=== PATIENT | female | born 1935 | race Caucasian/White ===

== ENCOUNTER 2018-01-09 18:21 | Inpatient (IN) ==
[2018-01-09] MEDS: *HR* OxyCODONE/APAP 5/325 TABLET PO PRN (23:28)
[2018-01-10 05:09] LABS: Basophils % 0.7 %; Eosinophils # 0.1 K/mcL (0.0-0.6); Eosinophils % 1.8 %; Hematocrit 28.6 % (35.3-44.9); Hemoglobin 9.5 g/dL (11.5-15.4); Immature Granulocytes % 0.3 % (0-4); Lymphocytes # 1.4 K/mcL (0.6-4.6); Lymphocytes % 23.5 %; Mean Corpuscular HGB Conc 33.2 g/dL (31.6-35.5); Mean Corpuscular Hemoglobin 31.3 pg (28.0-33.3); Mean Corpuscular Volume 94.1 fL (83.0-100.0); Mean Platelet Volume 10.9 fL (9.4-12.4); Monocytes # 0.6 K/mcL (0.0-1.3); Monocytes % 10.6 %; Neutrophils # 3.8 K/mcL (1.6-8.9); Platelet Count 172 K/mcL (140-400); Red Blood Count 3.04 M/mcL (3.82-4.97); Red Cell Distribution Width 14.5 % (11.5-14.5); Segmented Neutrophils % 63.1 %
[2018-01-10 05:26] LABS: Alanine Aminotransferase 29 Units/L (7-52); Albumin 3.1 g/dL (3.5-5.7); Albumin/Globulin Ratio 1.1 (1.1-2.2); Alkaline Phosphatase 59 Units/L (34-104); Aspartate Amino Transferase 38 Units/L (13-39); BUN/Creatinine Ratio 14 (6-26); Bilirubin,Total 0.6 mg/dL (0.3-1.0); Blood Urea Nitrogen 9 mg/dL (8-23); Calcium 8.6 mg/dL (8.6-10.3); Carbon Dioxide 31 mEq/L (23-29); Chloride 103 mEq/L (98-107); Globulin 2.7 g/dL (2.4-3.5); Glucose 105 mg/dL (70-105); Osmolality,Calculated 285 (280-300); Potassium 4.1 mEq/L (3.5-5.1); Sodium 138 mEq/L (136-145); Total Protein 5.8 g/dL (6.4-8.9); eGFR For African Americans > 60 (> 60); eGFR For Non-African Americans > 60 (> 60)
[2018-01-10] MEDS: *HR* OxyCODONE/APAP 5/325 TABLET PO PRN ×3 (05:36→20:18)
[2018-01-10] MEDS ORDERED: Acetaminophen 325 MG TABLET PO SCH (09:00)
[2018-01-10] MEDS: Multivit/Ca/Min/Fe/FA 1 TAB TABLET PO SCH (09:37)
[2018-01-10] MEDS: Gabapentin 300 MG CAPSULE PO SCH ×3 (09:37→20:19)
[2018-01-10] MEDS: *HR* Rivaroxaban 10 MG TABLET PO SCH (09:38)
--- NOTE | 2018-01-10 10:45 | Internal Med History&Physical ---
Date of Encounter: 01/10/18 Time of Encounter: 10:39 Assessment and Plan (1) Physical deconditioning Current visit: Yes Status: Acute This is attributed to patient's status post right knee arthroplasty. PT OT to evaluate patient and set goals We will attempt to control pain, to optimize therapy Currently; -Percocet 1.5 tabs of 5/325 every 6 hours as needed; we will attempt to lower by Friday -Schedule Tylenol 325 mg 3 times daily -Ice -Discontinued Celebrex 200 mg daily (2) Status post right knee replacement Current visit: Yes Status: Acute PT OT as above Patient to continue on Xeralto (3) Atrial fibrillation Current visit: Yes Status: Acute Sudheer Vasc score; 3 and adjusted stroke rate of 3.2%. -Continues overall to 20 mg, will investigate for possible GI bleed -As follow-up with Dr. Edwards, cardiology -We might need to touch base with Dr. Edwards the patient was found to have positive FOBT -Patient is rate controlled, and not on any rate control medication Qualifiers: Atrial fibrillation type: unspecified Qualified Code(s): I48.91 - Unspecified atrial fibrillation (4) GERD (gastroesophageal reflux disease) Current visit: Yes Status: Acute Patient has chronic condition, will continue with Maalox, -started omeprazole 20 mg daily -Avoid NSAIDs, discontinued Celebrex Qualifiers: Esophagitis presence: esophagitis presence not specified Qualified Code(s) : K21.9 - Gastro-esophageal reflux disease without esophagitis (5) Neuropathy Current visit: Yes Status: Acute Stable, continue gabapentin (6) Arthritis Current visit: Yes Status: Acute Stable continue meds as above (7) Carpal tunnel syndrome Current visit: Yes Status: Acute Stable, continue gabapentin Qualifiers: Laterality: bilateral Qualified Code(s): G56.03 - Carpal tunnel syndrome, bilateral upper limbs (8) Dark stools Current visit: Yes Status: Acute As reported by the patient, patient on Xarelto -Obtain FOBT -Started omeprazole 20 mg -Would avoid NSAIDs Internal Medicine - H&P: HPI Chief complaint: Right knee arthritis status post right total knee arthroplasty Admitted From: Hospital to Hospital Transfer History of present illness: 82-year-old female past medical history atrial fib, severe arthritis, status post right TKA 01/06/2018 who was transferred from [facility] for rehabilitation. I have met the patient, as well as the daughter near bedside on 01/10/2018 that reported that her current pain is 6/10 in severity, described as sharp and localized. Patient has baseline neuropathy bilateral lower extremity that she takes gabapentin which appears to have been very effective for her. Patient reported that she had physical therapist evaluate her, and she was able to bend her knee at least 90 degrees as well as ambulate with assistance, as well as perform 4 steps with assistance. Currently reports that her pain was controlled with 2 tabs of Percocet, and that her pain is exacerbated somewhat when she received 1 Percocets at the time of her transfer. She also reports Wilda, continuously with a sternal discomforts as well as burping. She also reported that her stomach is quivering , but that had improved which she attributes to anesthesia as she have experienced this before. She does not endorse any weakness, no headaches, no vision changes, no nasal or throat issues, no dysphagia, no chest pains, no shortness of breath, had a bowel movement this morning that was somewhat soft, able to urinate okay, able to move her feet okay as well. Patient does report that her bowel movement resulted in dark stools, has not endorsed any waqas blood. Does not report being on iron, but has been on Zaroxolyn. She has been switched as Xarelto due to cost. Past Med Surg Social Fam HX - Past Medical History Medical history: atrial fibrillation Additional medical history: New onset Psychiatric history: no psych history - Past Surgical History Additional surgical history: Bladder repair and Umbilical hernia repair. - Social History Smoking Status: Never smoker Smokeless Tobacco Status: No Alcohol use: none Drug use: none Internal Medicine - H&P: Meds Acetaminophen [Tylenol] 650 mg PO TID 01/09/18 [History] Docusate [Colace] 100 mg PO BID 01/09/18 [History] Gabapentin [Neurontin] 600 mg PO TID 01/09/18 [History] Multivit-Min/Iron Fum/Folic AC [Kjdnr-Knpklqt-Dvvoxpbk Tablet] 1 each PO DAILY 01/09/18 [History] OxyCODONE/APAP 5/325 [Percocet 5/325 MG] 1 each PO Q6HR PRN 01/09/18 [History] Polyethylene Glycol 3350 [MiraLAX] 17 gm PO BID 01/09/18 [History] Rivaroxaban [Xarelto] 20 mg PO DAILY 01/09/18 [History] 3 Allergy/AdvReac Type Severity Reaction Status Date / Time codiene Allergy Rash Uncoded 01/09/18 21:09 All Systems PM: A 10-system review of systems was performed and is negative for pertinent findings except as documented above in the HPI. - Constitutional Vitals: Temp Pulse Resp BP Pulse Ox 98.2 F 81 21 140/101 96 01/10/18 07:43 01/10/18 07:43 01/10/18 07:43 01/10/18 07:43 01/10/18 07:43 - Head Head exam: Present: atraumatic, normocephalic - Eye Eye exam: Present: PERRL, conjuntiva pink, sclera anicteric Pupils: Present: PERRL - Neck Neck exam general surgery: Present: supple, trachea midline. Absent: lymphadenopathy - Respiratory Respiratory exam: Present: CTAB. Absent: accessory muscle use, rales, rhonchi, wheezes - Cardiovascular Cardiovascular exam: Present: RRR, +S1, +S2. Absent: diastolic murmur, gallop, rubs, systolic murmur - GI/Abdominal GI/Abdominal exam: Present: normal bowel sounds, soft, no peritoneal signs. Absent: distended, tenderness - Extremities Exam Extremities exam: Present: warm, radial pulses palpable and symmetrical. Absent : calf tenderness, cyanotic, pedal edema Additional comments: Left knee covered, but patient had 5/500 foot and the toes bilaterally. Left leg testing is 5/5 as well. Upper extremity 5/5 CN grossly intact - Neurological Exam Neurological exam: Present: CN II-XII intact, oriented X3, no focal deficits. Absent: pronater drift, facial droop, speech deficit - Skin Skin exam: Present: dry, intact Internal Med - H&P Results - Labs CBC & Chem 7: 01/10/18 04:27 01/10/18 04:27 Labs: Short CBC 01/10/18 Range/Units 04:27 WBC 6.0 (4.3-11.1) K/mcL Hgb 9.5 L (11.5-15.4) g/dL Hct 28.6 L (35.3-44.9) % Plt Count 172 (140-400) K/mcL Neutrophils # 3.8 (1.6-8.9) K/mcL BMP 01/10/18 04:27 Sodium 138 Potassium 4.1 Chloride 103 Carbon Dioxide 31 H BUN 9 Creatinine 0.66 Glucose 105 Calcium 8.6 Liver Function 01/10/18 Range/Units 04:27 Total Bilirubin 0.6 (0.3-1.0) mg/dL AST 38 (13-39) Units/L ALT 29 (7-52) Units/L Alkaline Phosphatase 59 (34-104) Units/L Albumin 3.1 L (3.5-5.7) g/dL - VTE Reasons for not Prescribing Prophylaxis: Not indicated-Anticoagulated or INR therapeutic (Patient was Xarelto) Documentation of Mechanical Device: Graduated compression elastic hosiery
[2018-01-10] MEDS: Acetaminophen 325 MG TABLET PO SCH (18:02)
[2018-01-11] MEDS: Acetaminophen 325 MG TABLET PO SCH ×4 (03:08→16:55)
[2018-01-11] MEDS: *HR* OxyCODONE/APAP 5/325 TABLET PO PRN ×3 (06:04→20:15)
[2018-01-11] MEDS: Gabapentin 300 MG CAPSULE PO SCH ×3 (08:38→20:15)
[2018-01-11] MEDS: Multivit/Ca/Min/Fe/FA 1 TAB TABLET PO SCH (08:38)
[2018-01-11] MEDS: *HR* Rivaroxaban 10 MG TABLET PO SCH (08:39)
--- NOTE | 2018-01-11 15:28 | Internal Med Progress Note ---
Date of Encounter: 01/11/18 Time of Encounter: 15:26 - Assessment and plan (1) Physical deconditioning Current Visit: Yes Status: Acute Assessment and plan: Pain control; Percocet 1.5 tabs of 5/325 every 6 hours as needed Schedule Tylenol 325 mg 3 times daily Continue ice (2) Status post right knee replacement Current Visit: Yes Status: Acute Assessment and plan: PT/OT Patient currently on Xeralto for DVT prophy (3) Atrial fibrillation Current Visit: Yes Status: Acute Assessment and plan: New onset, with Sudheer vasc score of 3; adjusted stroke rate of 3.2% -Continue Xeral a 20mg, lymphocytic A for possible upper GI bleed -Follow-up with Dr. Edwards; cardiology -FOBT positive; touch base with cardiology sooner -Patient continues to be rate controlled, not on rate control meds Qualifiers: Atrial fibrillation type: unspecified Qualified Code(s): I48.91 - Unspecified atrial fibrillation (4) GERD (gastroesophageal reflux disease) Current Visit: Yes Status: Acute Assessment and plan: Chronic, continue Maalox -We started omeprazole 20 mg -Continue to avoid NSAIDs, we have discontinued Celebrex on admission Qualifiers: Esophagitis presence: esophagitis presence not specified Qualified Code(s) : K21.9 - Gastro-esophageal reflux disease without esophagitis (5) Neuropathy Current Visit: Yes Status: Acute Assessment and plan: Stable continue gabapentin (6) Arthritis Current Visit: Yes Status: Acute Assessment and plan: Stable, continue pain meds as above (7) Carpal tunnel syndrome Current Visit: Yes Status: Acute Assessment and plan: Stable, continue gabapentin Qualifiers: Laterality: bilateral Qualified Code(s): G56.03 - Carpal tunnel syndrome, bilateral upper limbs (8) Dark stools Current Visit: Yes Status: Acute Assessment and plan: Possible upper GI bleed, patient on AC -Obtain FOBT -Currently on omeprazole 20 mg -Continue to avoid NSAIDs - Time Spent With Patient 25 - 35 minutes - Subjective Interval history: Patient is resting comfortably in bed. Patient appears to be anxious, and explained that she has pain with ambulation, especially when she ambulated to the bathroom for bowel movement. Has been having bowel movements okay. Denied any CP/SOB/F/N/V Still reports that her bowel movements appears black, as before. Unable to obtain FOBT because she is reporting her bowel movements has been unpredictable - Constitutional Vitals: Temp Pulse Resp BP Pulse Ox 98.3 F 96 16 120/64 96 01/11/18 07:00 01/11/18 07:00 01/11/18 07:00 01/11/18 07:00 01/11/18 07:00 - Head Head exam: Present: atraumatic, normocephalic - Eye Eye exam: Present: PERRL, conjuntiva pink, sclera anicteric Pupils: Present: PERRL - Neck Neck exam general surgery: Present: supple, trachea midline. Absent: lymphadenopathy - Respiratory Respiratory exam: Present: CTAB. Absent: accessory muscle use, rales, rhonchi, wheezes - Cardiovascular Cardiovascular exam: Present: RRR, +S1, +S2. Absent: diastolic murmur, gallop, rubs, systolic murmur - GI/Abdominal GI/Abdominal exam: Present: normal bowel sounds, soft, no peritoneal signs. Absent: distended, tenderness - Extremities Exam Extremities exam: Present: warm, radial pulses palpable and symmetrical. Absent : calf tenderness, cyanotic, pedal edema Additional comments: Left knee covered, the patient had 5/5 at the foot and toes bilaterally. Left leg testing continues to be 5/5. - Neurological Exam Neurological exam: Present: CN II-XII intact, oriented X3, no focal deficits. Absent: pronater drift, facial droop, speech deficit - Skin Skin exam: Present: dry, intact Internal Medicine: Result - Labs CBC & Chem 7: 01/10/18 04:27 01/10/18 04:27 - VTE Reasons for not Prescribing Prophylaxis: Not indicated-Anticoagulated or INR therapeutic (Patient was Xarelto) Documentation of Mechanical Device: Graduated compression elastic hosiery Consult Discharge Plan - Plan Referrals: Mick Beauchamp MD [Primary Care Provider] -
[2018-01-12] MEDS: Acetaminophen 325 MG TABLET PO SCH ×9 (00:04→23:52)
[2018-01-12] MEDS: *HR* OxyCODONE/APAP 5/325 TABLET PO PRN ×2 (05:28→10:50)
[2018-01-12] MEDS: Gabapentin 300 MG CAPSULE PO SCH ×3 (09:40→20:15)
--- NOTE | 2018-01-12 09:40 | Internal Med Progress Note ---
Date of Encounter: 01/12/18 Time of Encounter: 09:38 - Assessment and plan (1) Status post right knee replacement Current Visit: Yes Status: Acute Assessment and plan: Continue Percocet for pain. Continue xarelto for DVT prophylaxis. Continue PT and OT. Will follow progress. Follow up with ortho as scheduled. (2) Atrial fibrillation Current Visit: Yes Status: Acute Assessment and plan: Rate and rhythm controlled. Continue xarelto. Follow up with cardiology. Qualifiers: Atrial fibrillation type: unspecified Qualified Code(s): I48.91 - Unspecified atrial fibrillation (3) GERD (gastroesophageal reflux disease) Current Visit: Yes Status: Acute Assessment and plan: Stable. Continue Maalox and omeprazole. Avoid NSAIDs Qualifiers: Esophagitis presence: esophagitis presence not specified Qualified Code(s) : K21.9 - Gastro-esophageal reflux disease without esophagitis (4) Neuropathy Current Visit: Yes Status: Acute Assessment and plan: Controlled with gabapentin. - Time Spent With Patient 25 - 35 minutes - Subjective Interval history: Patient resting in bed. States Percocet and ice has been effective for pain. Has increased pain when right leg is dependent when and chair. States bowels moved normal this morning. Maintaining appetite and hydration. Ambulating with Walker with therapy. Denies fever, chills, nausea, vomiting, diarrhea, shortness of breath or chest pain. - Constitutional Vitals: Temp Pulse Resp BP Pulse Ox 97.6 F 78 16 134/71 97 01/12/18 07:22 01/12/18 07:22 01/12/18 07:22 01/12/18 07:22 01/12/18 07:22 General appearance: Present: cooperative, A&O X 3, pleasant, no acute distress, answers questions appropriately - Head Head exam: Present: atraumatic, normocephalic - Eye Eye exam: Present: PERRL, conjuntiva pink, sclera anicteric Pupils: Present: PERRL - Neck Neck exam general surgery: Present: supple, trachea midline. Absent: lymphadenopathy - Respiratory Respiratory exam: Present: CTAB. Absent: accessory muscle use, rales, rhonchi, wheezes - Cardiovascular Cardiovascular exam: Present: RRR, +S1, +S2. Absent: diastolic murmur, gallop, rubs, systolic murmur - GI/Abdominal GI/Abdominal exam: Present: normal bowel sounds, soft, no peritoneal signs. Absent: distended, tenderness - Extremities Exam Extremities exam: Present: warm, radial pulses palpable and symmetrical. Absent : calf tenderness, cyanotic, pedal edema - Incison Comments: Right knee surgical incision, dressing dry and intact. Slight amount of drainage on dressing. Slight bruising to distal end. Moderate amount of edema surrounding incision. - Neurological Exam Neurological exam: Present: CN II-XII intact, oriented X3, no focal deficits. Absent: pronater drift, facial droop, speech deficit - Skin Skin exam: Present: dry, intact Internal Medicine: Result - Labs CBC & Chem 7: 01/10/18 04:27 01/10/18 04:27 - VTE Reasons for not Prescribing Prophylaxis: Not indicated-Anticoagulated or INR therapeutic (Patient was Xarelto) Documentation of Mechanical Device: Graduated compression elastic hosiery Consult Discharge Plan - Plan Referrals: Mick Beauchamp MD [Primary Care Provider] -
[2018-01-12] MEDS: Multivit/Ca/Min/Fe/FA 1 TAB TABLET PO SCH (09:41)
[2018-01-12] MEDS: *HR* Rivaroxaban 10 MG TABLET PO SCH (09:41)
[2018-01-12] MEDS: *HR* OxyCODONE Immed Rel 5 MG TABLET PO PRN ×2 (16:14→20:16)
[2018-01-13] MEDS: Acetaminophen 325 MG TABLET PO SCH ×5 (04:00→19:59)
[2018-01-13] MEDS: *HR* OxyCODONE Immed Rel 5 MG TABLET PO PRN ×4 (06:07→19:58)
[2018-01-13] MEDS: Multivit/Ca/Min/Fe/FA 1 TAB TABLET PO SCH (08:37)
[2018-01-13] MEDS: Gabapentin 300 MG CAPSULE PO SCH ×3 (08:37→19:58)
[2018-01-13] MEDS: *HR* Rivaroxaban 10 MG TABLET PO SCH (08:37)
--- NOTE | 2018-01-13 10:16 | Internal Med Progress Note ---
Date of Encounter: 01/13/18 Time of Encounter: 10:12 - Assessment and plan (1) Status post right knee replacement Current Visit: Yes Status: Acute Assessment and plan: Continue Percocet for pain. Continue xarelto for DVT prophylaxis. Continue PT and OT. Will follow progress. Follow up with ortho as scheduled. (2) Atrial fibrillation Current Visit: Yes Status: Acute Assessment and plan: Rate and rhythm controlled. Continue xarelto. Follow up with cardiology. Qualifiers: Atrial fibrillation type: unspecified Qualified Code(s): I48.91 - Unspecified atrial fibrillation (3) GERD (gastroesophageal reflux disease) Current Visit: Yes Status: Acute Assessment and plan: Stable. Continue Maalox and omeprazole. Avoid NSAIDs Qualifiers: Esophagitis presence: esophagitis presence not specified Qualified Code(s) : K21.9 - Gastro-esophageal reflux disease without esophagitis (4) Neuropathy Current Visit: Yes Status: Acute Assessment and plan: Controlled with gabapentin. - Time Spent With Patient less than 15 minutes - Subjective Interval history: Patient in therapy gym, participating well with therapy. ambulating with walker with PT. States Percocet and ice has been effective for pain. continues to have increased pain when right leg is dependent when and chair. Maintaining appetite and hydration. Ambulating with Walker with therapy. Denies fever, chills, nausea, vomiting, diarrhea, shortness of breath or chest pain. - Constitutional Vitals: Temp Pulse Resp BP Pulse Ox 98.1 F 82 16 128/78 97 01/13/18 07:28 01/13/18 07:28 01/12/18 18:43 01/13/18 07:28 01/13/18 07:28 General appearance: Present: cooperative, A&O X 3, pleasant, no acute distress, answers questions appropriately - Head Head exam: Present: atraumatic, normocephalic - Eye Eye exam: Present: PERRL, conjuntiva pink, sclera anicteric Pupils: Present: PERRL - Neck Neck exam general surgery: Present: supple, trachea midline. Absent: lymphadenopathy - Respiratory Respiratory exam: Present: CTAB. Absent: accessory muscle use, rales, rhonchi, wheezes - Cardiovascular Cardiovascular exam: Present: RRR, +S1, +S2. Absent: diastolic murmur, gallop, rubs, systolic murmur - GI/Abdominal GI/Abdominal exam: Present: normal bowel sounds, soft, no peritoneal signs. Absent: distended, tenderness - Extremities Exam Extremities exam: Present: warm, radial pulses palpable and symmetrical. Absent : calf tenderness, cyanotic, pedal edema - Incison Comments: right knee drsg dry and intact. slight edema and ecchymosis surrounding incision. - Neurological Exam Neurological exam: Present: CN II-XII intact, oriented X3, no focal deficits. Absent: pronater drift, facial droop, speech deficit - Skin Skin exam: Present: dry, intact Internal Medicine: Result - Labs CBC & Chem 7: 01/10/18 04:27 01/10/18 04:27 - VTE Reasons for not Prescribing Prophylaxis: Not indicated-Anticoagulated or INR therapeutic (Patient was Xarelto) Documentation of Mechanical Device: Graduated compression elastic hosiery Consult Discharge Plan - Plan Referrals: Mick Beauchamp MD [Primary Care Provider] -
[2018-01-14] MEDS: *HR* OxyCODONE Immed Rel 5 MG TABLET PO PRN ×5 (03:50→22:23)
[2018-01-14] MEDS: Acetaminophen 325 MG TABLET PO SCH ×7 (03:50→23:40)
[2018-01-14 07:21] LABS: Hematocrit 30.8 % (35.3-44.9); Hemoglobin 10.2 g/dL (11.5-15.4); Mean Corpuscular HGB Conc 33.1 g/dL (31.6-35.5); Mean Corpuscular Hemoglobin 31.6 pg (28.0-33.3); Mean Corpuscular Volume 95.4 fL (83.0-100.0); Mean Platelet Volume 10.2 fL (9.4-12.4); Red Blood Count 3.23 M/mcL (3.82-4.97); Red Cell Distribution Width 15.1 % (11.5-14.5)
[2018-01-14 07:24] LABS: Platelet Count 261 K/mcL (140-400)
[2018-01-14] MEDS: Gabapentin 300 MG CAPSULE PO SCH ×3 (07:55→20:05)
[2018-01-14] MEDS: *HR* Rivaroxaban 10 MG TABLET PO SCH (07:55)
[2018-01-14] MEDS: Multivit/Ca/Min/Fe/FA 1 TAB TABLET PO SCH (07:56)
--- NOTE | 2018-01-14 10:31 | Internal Med Progress Note ---
Date of Encounter: 01/14/18 Time of Encounter: 10:29 - Assessment and plan (1) Status post right knee replacement Current Visit: Yes Status: Acute Assessment and plan: Continue Percocet for pain. Continue xarelto for DVT prophylaxis. Continue PT and OT. Will follow progress. Follow up with ortho as scheduled. (2) Atrial fibrillation Current Visit: Yes Status: Acute Assessment and plan: Rate and rhythm controlled. Continue xarelto. Follow up with cardiology. Qualifiers: Atrial fibrillation type: unspecified Qualified Code(s): I48.91 - Unspecified atrial fibrillation (3) GERD (gastroesophageal reflux disease) Current Visit: Yes Status: Acute Assessment and plan: Stable. Continue Maalox and omeprazole. Avoid NSAIDs Qualifiers: Esophagitis presence: esophagitis presence not specified Qualified Code(s) : K21.9 - Gastro-esophageal reflux disease without esophagitis (4) Neuropathy Current Visit: Yes Status: Acute Assessment and plan: Controlled with gabapentin. (5) Occult blood positive stool Current Visit: Yes Status: Acute Assessment and plan: monitor hgb, improved today . denies visible blood with BM this am. GI consulted. - Time Spent With Patient less than 15 minutes - Subjective Interval history: participating well with therapy. ambulating with walker with PT. Percocet and ice has been effective for pain. continues to have increased pain when right leg is dependent when and chair. Maintaining appetite and hydration. Denies fever, chills, nausea, vomiting, diarrhea, shortness of breath or chest pain. last BM was this am. - Constitutional Vitals: Temp Pulse Resp BP Pulse Ox 97.6 F 91 18 122/85 100 01/14/18 07:23 01/14/18 07:23 01/14/18 07:23 01/14/18 07:23 01/14/18 07:23 General appearance: Present: cooperative, A&O X 3, pleasant, no acute distress, answers questions appropriately - Head Head exam: Present: atraumatic, normocephalic - Eye Eye exam: Present: PERRL, conjuntiva pink, sclera anicteric Pupils: Present: PERRL - Neck Neck exam general surgery: Present: supple, trachea midline. Absent: lymphadenopathy - Respiratory Respiratory exam: Present: CTAB. Absent: accessory muscle use, rales, rhonchi, wheezes - Cardiovascular Cardiovascular exam: Present: RRR, +S1, +S2. Absent: diastolic murmur, gallop, rubs, systolic murmur - GI/Abdominal GI/Abdominal exam: Present: normal bowel sounds, soft, no peritoneal signs. Absent: distended, tenderness - Extremities Exam Extremities exam: Present: warm, radial pulses palpable and symmetrical. Absent : calf tenderness, cyanotic, pedal edema - Incison Comments: rigt knee incision, drsg dry and intact. slight surrounding edema. no drainage - Neurological Exam Neurological exam: Present: CN II-XII intact, oriented X3, no focal deficits. Absent: pronater drift, facial droop, speech deficit - Skin Skin exam: Present: dry, intact Internal Medicine: Result - Labs CBC & Chem 7: 01/14/18 06:41 01/10/18 04:27 Labs: Short CBC 01/14/18 Range/Units 06:41 WBC 7.4 (4.3-11.1) K/mcL Hgb 10.2 L (11.5-15.4) g/dL Hct 30.8 L (35.3-44.9) % Plt Count 261 D (140-400) K/mcL - VTE Reasons for not Prescribing Prophylaxis: Not indicated-Anticoagulated or INR therapeutic (Patient was Xarelto) Documentation of Mechanical Device: Graduated compression elastic hosiery Consult Discharge Plan - Plan Referrals: Mick Beauchamp MD [Primary Care Provider] -
[2018-01-15] MEDS: *HR* OxyCODONE Immed Rel 5 MG TABLET PO PRN ×5 (04:25→22:12)
[2018-01-15] MEDS: Acetaminophen 325 MG TABLET PO SCH ×5 (07:04→20:09)
[2018-01-15] MEDS: *HR* Rivaroxaban 10 MG TABLET PO SCH (07:48)
[2018-01-15] MEDS: Gabapentin 300 MG CAPSULE PO SCH ×3 (07:48→20:09)
[2018-01-15] MEDS: Multivit/Ca/Min/Fe/FA 1 TAB TABLET PO SCH (07:48)
--- NOTE | 2018-01-15 16:42 | Internal Med Progress Note ---
Date of Encounter: 01/15/18 Time of Encounter: 16:39 - Assessment and plan (1) Status post right knee replacement Current Visit: Yes Status: Acute Assessment and plan: No acute issues. Right knee remains slightly swollen with moderate amount of ecchymosis, which appears to be fading. No erythema. Surgical incision is intact. Patient dissipating and physical therapy and progressing well. Pain is been well managed with current medications. Patient has had reports of dark stools but recent hemoglobin greater than 10 (2) Atrial fibrillation Current Visit: Yes Status: Chronic Assessment and plan: No acute issues. Patient's heart rate remains less than 100. We will continue with current medications. Vital signs stable. Patient states on anticoagulation of Xarelto. Qualifiers: Atrial fibrillation type: chronic Qualified Code(s): I48.2 - Chronic atrial fibrillation (3) GERD (gastroesophageal reflux disease) Current Visit: Yes Status: Chronic Assessment and plan: No acute issues. Patient denies any reflux. Patient reportedly and struck stools, but hemoglobin remains 10.2. Qualifiers: Esophagitis presence: esophagitis presence not specified Qualified Code(s) : K21.9 - Gastro-esophageal reflux disease without esophagitis (4) Neuropathy Current Visit: Yes Status: Chronic Assessment and plan: Patient denies any acute issues. We will continue with current medications - Time Spent With Patient less than 15 minutes - Subjective Interval history: Patient appears relaxed and currently denies any discomforts or shortness of breath. Patient states that her pain to her right knee increases during physical therapy, but that it is tolerable with current medications. - Constitutional Vitals: Temp Pulse Resp BP Pulse Ox 97.6 F 75 16 112/57 100 01/15/18 07:43 01/15/18 07:43 01/15/18 07:43 01/15/18 07:43 01/15/18 07:43 General appearance: Present: cooperative, A&O X 3, pleasant, no acute distress, answers questions appropriately - Head Head exam: Present: atraumatic, normocephalic - Eye Eye exam: Present: PERRL, conjuntiva pink, sclera anicteric Pupils: Present: PERRL - Neck Neck exam general surgery: Present: supple, trachea midline. Absent: lymphadenopathy - Respiratory Respiratory exam: Present: CTAB. Absent: accessory muscle use, rales, rhonchi, wheezes - Cardiovascular Cardiovascular exam: Present: irregular rhythm, RRR, +S1, +S2. Absent: diastolic murmur, gallop, rubs, systolic murmur Additional comments: Heart rate remains irregular with ventricular rate less than 100. - GI/Abdominal GI/Abdominal exam: Present: normal bowel sounds, soft, no peritoneal signs. Absent: distended, tenderness - Extremities Exam Extremities exam: Present: warm, radial pulses palpable and symmetrical. Absent : calf tenderness, cyanotic, pedal edema Additional comments: Right knee appears slightly swollen with midline surgical incision remaining dry and intact. Moderate amount of ecchymosis noted surrounding the. No erythema. - Neurological Exam Neurological exam: Present: CN II-XII intact, oriented X3, no focal deficits. Absent: pronater drift, facial droop, speech deficit - Skin Skin exam: Present: dry, intact Internal Medicine: Result - Labs CBC & Chem 7: 01/14/18 06:41 01/10/18 04:27 - VTE Reasons for not Prescribing Prophylaxis: Not indicated-Anticoagulated or INR therapeutic (Patient was Xarelto) Documentation of Mechanical Device: Graduated compression elastic hosiery Consult Discharge Plan - Plan Referrals: Mick Beauchamp MD [Primary Care Provider] -
[2018-01-16] MEDS: Acetaminophen 325 MG TABLET PO SCH ×4 (08:10→12:27)
[2018-01-16] MEDS: Gabapentin 300 MG CAPSULE PO SCH ×2 (08:10→14:22)
[2018-01-16] MEDS: Multivit/Ca/Min/Fe/FA 1 TAB TABLET PO SCH (08:10)
[2018-01-16] MEDS: *HR* Rivaroxaban 10 MG TABLET PO SCH (08:10)
[2018-01-16] MEDS: *HR* OxyCODONE Immed Rel 5 MG TABLET PO PRN ×2 (09:00→14:22)
--- NOTE | 2018-01-16 11:07 | Discharge Summary ---
Date of Encounter: 01/16/18 Time of Encounter: 11:04 - Discharge Diagnosis (1) Status post right knee replacement Priority: Primary Status: Acute Comments: Right knee incision appears dry and intact with a large amount of ecchymosis noted to the surrounding thigh and leg. Moderate swelling to right knee. Noted erythema to the lateral area. Will send home with a Rx for Keflex x7days. Patient to follow-up with orthopedic surgeon and PCP (2) Atrial fibrillation Priority: Secondary Status: Chronic Comments: Patient continues with irregular heart rate with controlled ventricular rate less than 100. Patient currently on several toe and will follow up with her PCP and cardiology. Qualifiers: Atrial fibrillation type: chronic Qualified Code(s): I48.2 - Chronic atrial fibrillation (3) GERD (gastroesophageal reflux disease) Priority: Secondary Status: Chronic Comments: No issues during hospitalization. Patient to continue on current medications and follow-up with PCP Qualifiers: Esophagitis presence: esophagitis presence not specified Qualified Code(s) : K21.9 - Gastro-esophageal reflux disease without esophagitis (4) Neuropathy Priority: Secondary Status: Chronic Comments: No complaints or issues during hospitalization. Patient continues on current Hospital course: Ms. Rhoades is a 82 year old female with a past medical history atrial fib, severe arthritis, status post right TKA 01/06/2018 who was transferred from [facility] for rehabilitation. Patient's right knee remains somewhat swollen with a midline surgical incision that remains intact with dressing being also dry and intact. Patient with large amount of ecchymosis surrounding surgical incision. Noted begining of errythema to the lateral side of the incision and will be sent home with a Rx for keflex. Patient was on anticoagulation prior to surgery for her atrial fibrillation. Patient participated in physical therapy and progressed well. Patient continues on her Xarelto for her atrial fibrillation, which has been well-controlled on rate less than 100. Patient was also noted to have dark tarry stools during her stay at rehabilitation which guaiaced positive. Patient's hemoglobin remained stable with the last being 10.2. Patient is to discharge home with home health PT/OT and is to follow-up with her orthopedic surgeon on Friday. Patient also to follow-up with cardiology and PCP for further management. Discharge discussed with: patient Time spent discussing smoking cessation with patient: 3 to 10 minutes - Time Spent with Patient Total time spent providing and/or coordinating discharge services: Less than 30 minutes - Discharge Medications Home Medications: Acetaminophen [Tylenol] 650 mg PO TID 01/09/18 [History] Docusate [Colace] 100 mg PO BID 01/09/18 [History] Gabapentin [Neurontin] 600 mg PO TID 01/09/18 [History] Multivit-Min/Iron Fum/Folic AC [Psrdx-Hxiheal-Wdpetnry Tablet] 1 each PO DAILY 01/09/18 [History] OxyCODONE/APAP 5/325 [Percocet 5/325 MG] 1 each PO Q6HR PRN 01/09/18 [History] Polyethylene Glycol 3350 [MiraLAX] 17 gm PO BID 01/09/18 [History] Rivaroxaban [Xarelto] 20 mg PO DAILY 01/09/18 [History] Allergies/Adverse Reactions: 3 Allergy/AdvReac Type Severity Reaction Status Date / Time codiene Allergy Rash Uncoded 01/09/18 21:09 Date of admission: 01/09/18 18:21 Primary care physician: Mick Beauchamp MD Consults: 01/09/18 21:10 Consult to Occupational Therapy [CONS] Routine Comment: Evaluate, develop and implement POC Reason for Consult: eval Does patient have active BEDREST order?: No Is patient medically & hemodynamically stable?: Yes Consult to Physical Therapy [CONS] Routine Comment: Evaluate, develop and implement POC Reason for Consult: eval Does patient have active BEDREST order?: No Is patient medically & hemodynamically stable?: Yes Consult to Recreational Therapy [CONS] Routine Comment: Evaluate, develop and implement POC Consult to Expressive Music Therapist [CONS] Routine Reason for SW Consult: eval 01/13/18 10:24 Consult to Gastroenterology [CONS] Routine Consulting Provider: Gastroenterology Danelle Reason for Consult: + occult stool Call Completed: Yes Discharging clinician: Elvis Sam - Constitutional Vitals: Temp Pulse Resp BP Pulse Ox 98.5 F 74 16 137/87 96 01/15/18 19:23 01/15/18 19:23 01/15/18 19:23 01/15/18 19:23 01/15/18 19:23 General appearance: Present: cooperative, A&O X 3, pleasant, no acute distress, answers questions appropriately - Head Head exam: Present: atraumatic, normocephalic - Eye Eye exam: Present: PERRL, conjuntiva pink, sclera anicteric Pupils: Present: PERRL - Neck Neck exam general surgery: Present: supple, trachea midline. Absent: lymphadenopathy - Respiratory Respiratory exam: Present: CTAB. Absent: accessory muscle use, rales, rhonchi, wheezes - Cardiovascular Cardiovascular exam: Present: irregular rhythm, RRR, +S1, +S2. Absent: diastolic murmur, gallop, rubs, systolic murmur Additional comments: Irregular heart rate with controlled rates less than 100 - GI/Abdominal GI/Abdominal exam: Present: normal bowel sounds, soft, no peritoneal signs. Absent: distended, tenderness - Extremities Exam Extremities exam: Present: warm, radial pulses palpable and symmetrical. Absent : calf tenderness, cyanotic, pedal edema Additional comments: Right leg with large amount of ecchymosis surrounding a right knee surgical incision. Surgical incision with dressing in place and appears dry and intact with no signs of infection - Neurological Exam Neurological exam: Present: CN II-XII intact, oriented X3, no focal deficits. Absent: pronater drift, facial droop, speech deficit - Skin Skin exam: Present: dry, intact - Patient Status Disposition: Home Health Service Condition: Good Functional capacity at discharge: uses cane/walker Overall status at discharge: patient is progressing back to baseline - Discharge Instructions Follow Up With: Chetan Gandhi MD [Non-Partnered Physician] - 01/20/18 2:00 pm Mick Beauchamp MD [Primary Care Provider] - 01/27/18 2:15 pm - Diet and Activity Activity: ambulate only with your walker, as per physical therapy, increase activity as tolerated, resume usual activities as tolerated Diet: advance to your usual diet, low fat, low cholesterol, low salt diet - VTE Reasons for not Prescribing Prophylaxis: Not indicated-Anticoagulated or INR therapeutic (Patient was Xarelto) Documentation of Mechanical Device: Graduated compression elastic hosiery
--- NOTE | 2018-01-16 11:24 | Physician Discharge Referral ---
Home Health/Hosp Referral Info Transfer to: Home Health Provider in Charge Post Discharge: PCP - Diagnosis (1) Status post right knee replacement Priority: Primary Status: Acute (2) Atrial fibrillation Priority: Secondary Status: Chronic (3) GERD (gastroesophageal reflux disease) Priority: Secondary Status: Chronic (4) Neuropathy Priority: Secondary Status: Chronic - Respiratory Orders Smoking Cessation: Smoking cessation has been advised. For more information, call the [place] Tobacco Quit Line at 1-994-MBSS-NOW. - Diet/Nutrition Diet/Nutrition Orders: Regular, No Added Salt (BHUPENDRA), Cardiac - Activity Activity Orders: Up ad armand, Walker - Services Needed Following services are medically necessary services: Nursing, Physical Therapy - Transfer Medications Home Medications: Acetaminophen [Tylenol] 650 mg PO TID 01/09/18 [History] Docusate [Colace] 100 mg PO BID 01/09/18 [History] Gabapentin [Neurontin] 600 mg PO TID 01/09/18 [History] Multivit-Min/Iron Fum/Folic AC [Mdbmg-Ktjlbio-Memmdjry Tablet] 1 each PO DAILY 01/09/18 [History] OxyCODONE/APAP 5/325 [Percocet 5/325 MG] 1 each PO Q6HR PRN 01/09/18 [History] Polyethylene Glycol 3350 [MiraLAX] 17 gm PO BID 01/09/18 [History] Rivaroxaban [Xarelto] 20 mg PO DAILY 01/09/18 [History] Allergies/Adverse Reactions: 3 Allergy/AdvReac Type Severity Reaction Status Date / Time codiene Allergy Rash Uncoded 01/09/18 21:09 Certification: Further, I certify that my clinical findings support that this patient is homebound (i.e. absences from home require considerable and taxing effort and are for medical reasons or religion services or infrequently or short duration when for other reasons) because: Homebound Reason: Leaving home requires considerable and taxing effort due to condition Attestation: My signature below is to certify that this patient is under my care and that I, or nurse practitioner, or a physician's assistant child care teacher working with me, has a face-to -face encounter with this patient.
[2018-01-16 11:33] VITALS: BP 124/76
== END 2018-01-16 15:40 | disposition home health service (06) | DRG 561 ==
LOC: INPGRE 18:21